=== PATIENT | male | born 2000 | race Caucasian/White ===

== ENCOUNTER 2024-05-30 09:11 | Emergency (ER) | payer OTHER ==
[~2024-05-30] VITALS: Ht 180.3 cm; Wt 103.2 kg
[2024-05-30] MEDS ORDERED: DICY-61 PO (09:17)
[2024-05-30 11:01] VITALS: BP 123/70; TEMP 97.9; O2SAT 99
== END 2024-05-30 11:20 | disposition home or self-care (01) ==
LOC: M ED 09:11
DX: K58.9 Irritable bowel syndrome, unspecified (principal); F17.200 Nicotine dependence, unspecified, uncomplicated; Z91.048 Other nonmedicinal substance allergy status; Z79.899 Other long term (current) drug therapy

== ENCOUNTER 2024-06-19 14:35 | Emergency (ER) | payer OTHER ==
[~2024-06-19] VITALS: Ht 182.9 cm; Wt 104.8 kg
[~2024-06-19 14:35] MED LIST: DICY-61 PO
[2024-06-19 14:39] VITALS: BP 127/70; TEMP 96.8; O2SAT 100
== END 2024-06-19 17:28 | disposition left against medical advice (07) ==
LOC: M ED 14:35
DX: Z53.21 Procedure and treatment not carried out due to patient leaving prior to being seen by health care provider (principal)